=== PATIENT | female | born 1945 | race Asian ===

== ENCOUNTER → 2017-10-14 | Day surgery (SDC) | payer OTHER ==
[2017-10-12 10:57] VITALS: BMI 23.6
== END | disposition home or self-care (01) ==
LOC: FASU 06:28
PROVIDERS: ATTEND Ophthalmology
PROC: 08RK3JZ Replacement of Left Lens with Synthetic Substitute, Percutaneous Approach (ICD-10-PCS; principal; 2017-10-14)
DX: H26.8 Other specified cataract (principal); Z53.8 Procedure and treatment not carried out for other reasons